=== PATIENT | male | born 1990 | race African-American/Black ===

== ENCOUNTER 2023-06-22 14:15 | Emergency (ER) | payer MEDICAID ==
[~2023-06-22] VITALS: Ht 172.7 cm; Wt 74.8 kg
[2023-06-22 16:22] VITALS: BP 133/77; TEMP 98.7
[2023-06-22 21:01] VITALS: O2SAT 98
== END 2023-06-22 21:02 | disposition home or self-care (01) ==
LOC: ER 14:26
DX: F10.10 Alcohol abuse, uncomplicated (principal); G47.00 Insomnia, unspecified; Y90.9 Presence of alcohol in blood, level not specified

== ENCOUNTER 2023-06-23 09:18 | Emergency (ER) | payer MEDICAID ==
[~2023-06-23] VITALS: Ht 172.7 cm; Wt 74.8 kg
[2023-06-23 14:06] VITALS: BP 128/77; TEMP 98.2; O2SAT 98
== END 2023-06-23 14:07 | disposition home or self-care (01) ==
LOC: ER 09:30
DX: F10.229 Alcohol dependence with intoxication, unspecified (principal); Y90.9 Presence of alcohol in blood, level not specified